=== PATIENT | female | born 1945 | race Caucasian/White ===

== ENCOUNTER 2018-05-07 16:09 | Emergency (ER) | payer MEDICAID ==
[~2018-05-07] VITALS: Ht 165.1 cm; Wt 59.0 kg
[2018-05-07 16:38] LABS: ABSOLUTE EOSINOPHILS 0.1 thou/uL (0.0-0.7); ABSOLUTE MONOCYTES 0.5 thou/uL (0.0-1.2); ABSOLUTE NEUTROPHILS 2.8 thou/uL (1.6-8.1); BASOPHILS 0.5 %; EOSINOPHILS 2.1 %; HEMATOCRIT 31.2 % (37.0-47.0); HEMOGLOBIN 10.1 gm/dL (12.0-15.0); LYMPHOCYTES 36.3 %; MCH 29.1 pg (26.0-34.0); MCHC 32.4 g/dL (28.0-37.0); MCV 89.7 fL (80.0-100.0); MONOCYTES 8.7 %; MPV 10.6 fl. (7.2-11.1); NUCLEATED RBCS 0 /100WBC; PLATELET COUNT* 163 thou/uL (150-400); POLYS 52.4 %; RBC 3.48 mil/uL (4.20-5.00); RDW-CV 13.9 % (10.5-14.5); WBC 5.4 thou/uL (4.0-11.0)
[2018-05-07 16:44] LABS: CREATININE 1.1 mg/dL (0.6-1.3); POTASSIUM 4.5 mmol/L (3.5-5.1)
[2018-05-07 16:49] LABS: ALBUMIN 3.8 g/dL (3.4-5.0); TOTAL BILIRUBIN 0.2 mg/dL (<0.1-1.0); TOTAL PROTEIN 8.1 g/dL (6.4-8.2)
[2018-05-07] MEDS ORDERED: PREDNISONE 20 M20 M1 PO (17:34)
[2018-05-07 17:41] LABS: ESR (SEDRATE) 43 mm/hr (0-30)
[2018-05-07 17:55] VITALS: BP 165/85
== END 2018-05-07 17:56 | disposition home or self-care (01) ==
LOC: M.ERS 16:09
PROVIDERS: Family Medicine
DX: M26.601 Right temporomandibular joint disorder, unspecified (principal); I10 Essential (primary) hypertension

== ENCOUNTER 2021-04-13 14:06 | Emergency (ER) | payer MEDICAID ==
[~2021-04-13] VITALS: Ht 165.1 cm; Wt 72.6 kg
[~2021-04-13 14:06] MED LIST: PREDNISONE 20 M20 M1 PO
[2021-04-13] MEDS ORDERED: LISINOPRIL10 MG PO (14:17)
[2021-04-13] MEDS ORDERED: METFORMIN HCL500 M3 PO (14:18)
[2021-04-13] MEDS ORDERED: AUGMENTIN 875-1 EACH PO (15:20)
[2021-04-13] MEDS ORDERED: CIPRODEX OTIC7.5 ML OTIC (15:20)
[2021-04-13 15:26] VITALS: BP 163/87
== END 2021-04-13 15:27 | disposition home or self-care (01) ==
LOC: M.ERS 14:06
DX: H66.92 Otitis media, unspecified, left ear (principal); H60.92 Unspecified otitis externa, left ear; I10 Essential (primary) hypertension; E11.9 Type 2 diabetes mellitus without complications

== ENCOUNTER 2021-05-15 12:00 | Emergency (ER) | payer MEDICAID ==
[~2021-05-15] VITALS: Ht 165.1 cm; Wt 75.8 kg
[~2021-05-15 12:00] MED LIST changes: +AUGMENTIN 875-1 EACH PO; +CIPRODEX OTIC7.5 ML OTIC; +LISINOPRIL10 MG PO; +METFORMIN HCL500 M3 PO
[2021-05-15] MEDS ORDERED: LANTUS SUBQ (12:10)
[2021-05-15] MEDS ORDERED: HYDROCODON-ACE1 EAC7 PO (12:17)
[2021-05-15] MEDS ORDERED: PREDNISONE 20 M20 M1 PO (12:17)
[2021-05-15 12:44] VITALS: BP 189/89
== END 2021-05-15 12:44 | disposition home or self-care (01) ==
LOC: M.ERS 12:00
DX: M26.601 Right temporomandibular joint disorder, unspecified (principal); I10 Essential (primary) hypertension; E11.9 Type 2 diabetes mellitus without complications; Z79.4 Long term (current) use of insulin; Z79.899 Other long term (current) drug therapy

== ENCOUNTER 2021-06-20 17:42 | Emergency (ER) | payer MEDICAID ==
[~2021-06-20] VITALS: Ht 167.6 cm; Wt 72.6 kg
[~2021-06-20 17:42] MED LIST changes: +HYDROCODON-ACE1 EAC7 PO; +LANTUS SUBQ
[2021-06-20] MEDS ORDERED: PREDNISONE 20 M20 M1 PO ×2 (17:48→18:38)
[2021-06-20] MEDS ORDERED: HYDROCODON-ACE1 EAC7 PO ×2 (17:48→18:38)
[2021-06-20] MEDS ORDERED: NORTRIPTYLINE H10 M1 PO (17:52)
[2021-06-20] MEDS ORDERED: CARVEDILOL6.25 M1 PO (17:52)
[2021-06-20] MEDS ORDERED: NEURONTIN300 MG PO ×2 (18:13→18:38)
[2021-06-20 18:55] VITALS: BP 140/50
== END 2021-06-20 18:56 | disposition home or self-care (01) ==
LOC: M.ERS 17:42
DX: M26.641 Arthritis of right temporomandibular joint (principal); I10 Essential (primary) hypertension; E11.9 Type 2 diabetes mellitus without complications

== ENCOUNTER 2021-10-03 15:22 | Emergency (ER) | payer MEDICAID ==
[~2021-10-03] VITALS: Ht 160 cm; Wt 72.6 kg
[~2021-10-03 15:22] MED LIST changes: +CARVEDILOL6.25 M1 PO; +NEURONTIN300 MG PO; +NORTRIPTYLINE H10 M1 PO
[2021-10-03] MEDS ORDERED: PREDNISONE 20 M20 M1 PO (15:34)
[2021-10-03] MEDS ORDERED: HYDROCODON-ACE1 EAC7 PO (15:34)
[2021-10-03 15:52] VITALS: BP 161/84
== END 2021-10-03 15:53 | disposition home or self-care (01) ==
LOC: M.ERS 15:22
DX: M26.629 Arthralgia of temporomandibular joint, unspecified side (principal); I10 Essential (primary) hypertension; E11.9 Type 2 diabetes mellitus without complications; Z79.899 Other long term (current) drug therapy; Z94.7 Corneal transplant status; Z79.4 Long term (current) use of insulin